=== PATIENT | male | born 1995 | race Caucasian/White ===

== ENCOUNTER 2018-12-03 18:41 | Emergency (ER) | payer SELFPAY ==
[~2018-12-03] VITALS: Ht 170.2 cm; Wt 84.0 kg
[2018-12-03 18:51] VITALS: Ht 170.2 cm; Wt 84.0 kg
[2018-12-03 20:32] VITALS: BP 129/71
== END 2018-12-03 20:32 | disposition home or self-care (01) ==
LOC: ED 18:41
DX: M54.5 Low back pain (principal); R50.9 Fever, unspecified; M79.10 Myalgia, unspecified site
CPT/HCPCS: J1885